=== PATIENT | male | born 2000 | race Caucasian/White ===

== ENCOUNTER 2018-03-02 07:26 | Emergency (ER) | payer OTHER ==
[2018-03-02 09:11] LABS: ETHYL ALCOHOL (ETHANOL) 0.173 % (0.000-0.010)
== END 2018-03-02 12:04 | disposition home or self-care (01) ==
LOC: M ED 07:26
DX: S02.2XXA Fracture of nasal bones, initial encounter for closed fracture (principal); W50.0XXA Accidental hit or strike by another person, initial encounter; Y92.410 Unspecified street and highway as the place of occurrence of the external cause; Y93.9 Activity, unspecified; Y99.9 Unspecified external cause status; F17.200 Nicotine dependence, unspecified, uncomplicated
CPT/HCPCS: 70450

== ENCOUNTER 2022-06-06 09:28 | Emergency (ER) | payer OTHER ==
[~2022-06-06] VITALS: Ht 175.3 cm; Wt 71.7 kg
[~2022-06-06 09:28] MED LIST: IBUP-1022 PO; NORC1TAB7 PO
[2022-06-06] MEDS ORDERED: CIPR7.5D5 OTIC (11:51)
[2022-06-06 12:27] VITALS: BP 120/77
== END 2022-06-06 12:29 | disposition home or self-care (01) ==
LOC: M ED 09:28
DX: H60.91 Unspecified otitis externa, right ear (principal); F17.200 Nicotine dependence, unspecified, uncomplicated